=== PATIENT | female | born 1965 | race African-American/Black ===

== ENCOUNTER 2018-03-27 10:30 | Inpatient (IN) | payer SELFPAY ==
[2018-03-27] MEDS ORDERED: Nitroglycerin 0.4 MG TAB (25 Tab Bottle) ONE (11:14)
[2018-03-27 11:37] LABS: #Eosinphils 0.2 thou/uL (0.0-0.7); #Monocytes 0.4 thou/uL (0.11-0.59); #Neutrophils 3.3 thou/uL (1.40-6.50); %Basophils 0.7 % (0.0-1.0); %Eosinophils 3.7 % (0.0-10.0); %Lymphocytes 19.8 % (21.0-51.0); %Neutrophils 67.8 % (42.0-75.0); ALT (SGPT) 13 U/L (8-55); AST (SGOT) 17 U/L (5-34); Albumin 4.1 g/dL (3.5-5.0); Alkaline Phosphatase 63 U/L (40-150); Anion Gap 13 mmol/L (10-20); BUN (Urea Nitrogen) 8 mg/dL (9.8-20.1); Bilirubin, Total 0.3 mg/dL (0.2-1.2); CK (CPK) 110 U/L (29-168); Calc. Creatinine Clearance 0 mL/min (70-130); Calcium 9.1 mg/dL (7.8-10.44); Carbon Dioxide 20 mmol/L (22-29); Chloride 107 mmol/L (98-107); Estimated GFR-MDRD 72; Globulin 4.7 g/dL (2.4-3.5); Glucose 139 mg/dL (70-105); Hemoglobin 13.2 g/dL (12.0-16.0); Large Platelets MODERATE; Lipase 39 U/L (8-78); MDiff Complete? YES; Mean Corpuscular HGB CONC 33.1 g/dL (32.0-36.0); Mean Corpuscular Hemoglobin 30.1 pg (27.0-31.0); Mean Platelet Volume 13.5 fL (7.4-10.4); PLT Morphology Comment Appears Decreased; Platelet Count 94 thou/uL (130-400); Potassium 3.1 mmol/L (3.5-5.1); Protein, Total 8.8 g/dL (6.0-8.3); Red Blood Cell (RBC) Count 4.39 mill/uL (4.20-5.40); Sodium 137 mmol/L (136-145); White Blood Cell (WBC) Count 4.8 thou/uL (4.8-10.8)
[2018-03-27 11:40] LABS: CKMB 1.5 ng/mL (0-6.6); Troponin I 0.033 ng/mL (< 0.028)
[2018-03-27] MEDS ORDERED: Potassium Chloride 20 MEQ TAB ONE (11:57)
--- NOTE | 2018-03-27 12:15 | RAD ---
SINGLE VIEW CHEST: Date: 03/27/18 COMPARISON: 09/21/14. HISTORY: Low blood pressure and chest pain. FINDINGS: Single view of the chest shows a normal sized cardiomediastinal silhouette. There is no evidence of c onsolidation, mass, or pleural effusion. The bones are unremarkable. IMPRESSION: No evidence of acute cardiopulmonary disease. POS: [facility]
[2018-03-27] MEDS ORDERED: Nitroglycerin 2% Ointment 1 INCH/1 GM Packet ONE (12:33)
[2018-03-27] MEDS ORDERED: hydrALAZINE 20 MG/ML VIAL ONE (12:37)
[2018-03-27] MEDS ORDERED: niCARdipine 20MG In NaCl 20 MG/200 ML BAG ONE (13:00)
[2018-03-27 13:10] LABS: Amphetamine Not Detected (NotDetected); Barbiturates Screen Not Detected (NotDetected); Benzodiazepine Screen Not Detected (NotDetected); Cocaine Metabolite Screen Not Detected (NotDetected); Medtox Control Line Valid? VALID (VALID); Medtox Reader # READER 1; Methadone Not Detected (NotDetected); Methamphetamine Not Detected (NotDetected); Opiate Screen Not Detected (NotDetected); Oxycodone Screen Not Detected (NotDetected); Phencyclidine (PCP) Not Detected (NotDetected); THC/Cannabinoid Screen Not Detected (NotDetected); Tricyclic Screen Not Detected (NotDetected)
--- NOTE | 2018-03-27 14:11 | HP ---
[facility] call admission for [facility], referred to [facility] Hospitalist Service by [facility] for hypertensive urgency. HISTORY OF PRESENT ILLNESS: The patient noted on her telephone that her blood pressure was low. She presented to emergency room where she was found to have blood pressure of 210/133. She related at t hat time that she had stopped her medicines since her blood pressure was low. Her symptoms included some sharp chest pain and dyspnea on exertion which she said were just in the past 24 hours. The pat sadia has no local doctor upon examining her paperwork. Her prescriptions from [place], [place] were last filled here in September and she admits she has been out of her medicines for months. PAST MEDICAL HISTORY: Pertinent for longstanding hypertension and noncompliance. She had a cerebral hemorrhage, seen at this hospital in 2015 with severe uncontrolled blood pressure. ALLERGIES: No medical allergies. PAST SURGICAL HISTORY: Open reduction internal fixation of left ankle. FAMILY HISTORY: She states her mother and father are . She has no idea what cause. SOCIAL HISTORY: She is single, nonsmoker, nonalcohol drinker. Denies illicit drugs. REVIEW OF SYSTEMS: General: No headaches, dizziness, fainting, fever or chills. Eyes: No double v ision, blurred vision, flashing lights. Ear, Nose and Throat: No ear pain or drainage. No nasal bl eeding. No trouble swallowing. Cardiac: No pressure, chest pain, orthopnea or paroxysmal nocturnal dyspnea. Respiratory: No cough, wheezing or asthma, but she does have dyspnea on exertion. Gastro intestinal: No nausea, vomiting, abdominal pain, constipation or diarrhea. Genitourinary: No hemat uria, dysuria. Musculoskeletal: No pain or swelling in her arms or legs. Neurologic: Stroke 2015, no residual. Psychiatric: No anxiety, depression. Skin: No bruising, bleeding or rash. Heme/Lym ph: No tender or swollen lymph nodes in axilla, inguinal or cervical area. PHYSICAL EXAMINATION: VITAL SIGNS: Blood pressure 199/123, pulse 115, respirations 18, chest pain 4, O2 sat 100 on room ai r. GENERAL: Alert, oriented and cooperative. HEENT: Pupils equal, round, and reactive to light and extraocular movements are intact. Sclerae whi te. Tympanic membranes clear. Nose clear. Oral mucous membranes are wet. Dental hygiene is good. NECK: No jugular venous distention, adenopathy, thyromegaly. CHEST: Clear to auscultation and percussion. HEART: Had a regular rate and rhythm. First and second heart sounds are clear. There are no apprec iated murmurs or gallops. ABDOMEN: Soft, bowel sounds are normal. There is no hepatosplenomegaly, no mass, no rebound, no bru its. EXTREMITIES: Reveal no cyanosis, clubbing or edema. PULSES: Carotid, radial, femoral, dorsalis pedis pulses intact and symmetric. SKIN: Warm and dry without bruises or rash. HEME/LYMPH: No tender or swollen lymph nodes in axilla, inguinal or cervical area. NEUROLOGICAL: Cranial nerves II-XII are intact. Deep tendon reflexes symmetric. IMAGING: EKG: Regular sinus rhythm, left ventricular hypertrophy with nonspecific ST-T abnormality. Chest x-ray, no cardiomegaly, CHF or infiltrate; however, there could be some very minimal pulmonar y vascular congestion, reviewed by me. LABORATORY DATA: Sodium 137, potassium 3.1, chloride 107, CO2 of 20, BUN 8, creatinine 0.98, blood s ugar 139. Liver function tests normal. Troponin is minimally elevated at 0.033. BNP 84.7. CBC is unremarkable except for a platelet count of 94,000. ADMITTING DIAGNOSES: 1. Hypertensive urgency. 2. Medical noncompliance. 3. Atypical chest pain. 4. Dyspnea on exertion. 5. Drug screen pending. PLAN: Admit to ICU on Cardene drip. Her previous medicines which she is not taking are documented c lonidine 0.2 mg a day, lisinopril/hydrochlorothiazide 20/25 once a day, and Coreg 12.5 twice a day. These will be reinstituted once I get her in ICU with her blood pressure controlled. Serial cardiac enzymes will be done. Nitroglycerin ointment will be placed on her skin. Aspirin will be given.
[2018-03-27] MEDS ORDERED: niCARdipine 40MG In NaCl 40 MG/200 ML BAG IVPB SCH (14:24)
[2018-03-27] MEDS ORDERED: Ondansetron HCl/PF 4 MG/2 ML Vial IVP PRN (14:24)
[2018-03-27 15:06] VITALS: BMI 36.3
[2018-03-27] MEDS ORDERED: Metoprolol Tartrate 5 MG/5 ML VIAL IVP PRN (15:31)
[2018-03-27 15:33] LABS: Troponin I 0.031 ng/mL (< 0.028)
[2018-03-27] MEDS ORDERED: Potassium Chloride 20 MEQ TAB PO SCH (17:00)
--- NOTE | 2018-03-27 17:09 | PDOC.EVN ---
Event Note - Event Note Event Note: UDS negative. troponin 0.05, 0.05. will order T4, TSH. continue agressive BP control
[2018-03-27] MEDS: Ketorolac Tromethamine 30 MG/ML VIAL IVP SCH (18:51)
[2018-03-27 19:31] LABS: Troponin I 0.053 ng/mL (< 0.028)
[2018-03-27 19:45] LABS: Free Thyroxine Index 2.15 (1.4-3.1); T4 7.9 ug/dL (4.87-11.72); Thyroid Stimulating Hormone 0.6025 uIU/mL (0.35-4.94)
[2018-03-27] MEDS ORDERED: niCARdipine HCl 25 MG in Sodium Chloride 0.9% 250 ML 240 ML IVPB SCH (19:45)
[2018-03-27] MEDS: Carvedilol 6.25 MG TAB PO SCH (20:00)
[2018-03-27] MEDS ORDERED: niCARdipine HCl 50 MG in Sodium Chloride 0.9% 250 ML 240 ML IVPB SCH (20:00)
[2018-03-27] MEDS: Nitroglycerin 2% Ointment 1 INCH/1 GM Packet TOP SCH (20:01)
[2018-03-27] MEDS: Acetaminophen 325 MG TAB PO PRN (20:09)
[2018-03-27 21:37] LABS: Troponin I 0.055 ng/mL (< 0.028)
[2018-03-28] MEDS: Ketorolac Tromethamine 30 MG/ML VIAL IVP SCH ×5 (00:23→22:58)
[2018-03-28 05:29] LABS: #Eosinphils 0.1 thou/uL (0.0-0.7); #Lymphocytes 1.1 thou/uL (1.20-3.40); #Monocytes 0.8 thou/uL (0.11-0.59); %Basophils 0.1 % (0.0-1.0); %Eosinophils 0.7 % (0.0-10.0); %Lymphocytes 13.3 % (21.0-51.0); %Monocytes 10.1 % (0.0-10.0); %Neutrophils 75.8 % (42.0-75.0); Hemoglobin 12.2 g/dL (12.0-16.0); Mean Corpuscular HGB CONC 33.9 g/dL (32.0-36.0); Mean Corpuscular Volume 91.7 fL (78.0-98.0); Mean Platelet Volume 13.3 fL (7.4-10.4); Platelet Count 105 thou/uL (130-400); RBC Distribution Width 12.2 % (11.5-14.5); Red Blood Cell (RBC) Count 3.93 mill/uL (4.20-5.40); White Blood Cell (WBC) Count 7.9 thou/uL (4.8-10.8)
[2018-03-28 05:37] LABS: Anion Gap 10 mmol/L (10-20); BUN (Urea Nitrogen) 15 mg/dL (9.8-20.1); Calc. Creatinine Clearance 98 mL/min (70-130); Carbon Dioxide 21 mmol/L (22-29); Chloride 109 mmol/L (98-107); Estimated GFR-MDRD 69; Glucose 112 mg/dL (70-105); Potassium 3.8 mmol/L (3.5-5.1); Sodium 136 mmol/L (136-145)
[2018-03-28] MEDS ORDERED: hydrALAZINE 25 MG TAB PO SCH ×2 (09:00→15:00)
[2018-03-28] MEDS ORDERED: Lisinopril 20 MG TAB PO SCH (09:00)
[2018-03-28] MEDS: Aspirin 325 MG TAB PO SCH (09:09)
[2018-03-28] MEDS: Carvedilol 6.25 MG TAB PO SCH ×2 (09:10→19:41)
[2018-03-28] MEDS: Hydrochlorothiazide 25 MG TAB PO SCH (09:11)
[2018-03-28] MEDS: Nitroglycerin 2% Ointment 1 INCH/1 GM Packet TOP SCH (09:12)
--- NOTE | 2018-03-28 14:19 | PDOC.PN ---
- Subjective Encounter Start Date: 03/28/18 Encounter Start Time: 14:18 Subjective: feels much better. some headache - Objective Resuscitation Status: Resuscitation Status FULL:Full Resuscitation MAR Reviewed: Yes Vital Signs & Weight: Vital Signs (12 hours) Temp Pulse Resp BP Pulse Ox 03/28/18 12:00 98.2 F 03/28/18 09:11 145/101 H 03/28/18 09:10 105 H 145/101 H 03/28/18 08:00 97 F L 105 H 20 100 03/28/18 07:50 100 03/28/18 07:00 99.0 F 03/28/18 05:00 98.6 F Weight Weight 211 lb 10.3 oz Most Recent Monitor Data Heart Rate from ECG 115 NIBP 164/87 NIBP BP-Mean 113 Respiration from ECG 20 SpO2 100 I&O: 03/27/18 03/28/18 03/29/18 06:59 06:59 06:59 Intake Total 624 600 Output Total 750 500 Balance -126 100 Result Diagrams: 03/28/18 05:11 03/28/18 05:11 Additional Labs: Laboratory Tests 09/21/14 03/27/18 03/27/18 22:32 10:50 14:57 Troponin I 0.036 H 0.033 H 0.031 H 03/27/18 03/27/18 18:40 21:01 Troponin I 0.053 H 0.055 H Phys Exam - Physical Examination Constitutional: NAD HEENT: PERRLA, moist MMs, sclera anicteric, oral pharynx no lesions Neck: no nodes, no JVD, supple, full ROM Respiratory: no wheezing, no rales, no rhonchi, clear to auscultation bilateral Cardiovascular: RRR, no significant murmur, no rub Gastrointestinal: soft, non-tender, no distention, positive bowel sounds Musculoskeletal: no edema, pulses present Neurological: non-focal, normal sensation, moves all 4 limbs Psychiatric: normal affect, A&O x 3 Skin: no rash Dx/Plan (1) Hypertensive emergency Code(s): I10 - ESSENTIAL (PRIMARY) HYPERTENSION Status: Acute (2) Demand ischemia Code(s): I24.8 - OTHER FORMS OF ACUTE ISCHEMIC HEART DISEASE Status: Acute (3) Non compliance w medication regimen Code(s): Z91.14 - PATIENT'S OTHER NONCOMPLIANCE WITH MEDICATION REGIMEN Status : Acute (4) HTN (hypertension) Code(s): I10 - ESSENTIAL (PRIMARY) HYPERTENSION Status: Acute - Plan DVT proph w/SCDs stop cardene drip. DC Nitro paste. -: incraese hydralazine to 50 TID. -: home meds resumed. monitor. -: pt educated extensively about OP f/u closely w PCP -: transfer out of CCU.tele * . Review of Systems - Review of Systems Constitutional: negative: fever, chills, sweats, weakness, malaise, other ENT: negative: Ear Pain, Ear Discharge, Nose Pain, Nose Discharge, Nose Congestion, Mouth Pain, Mouth Swelling, Throat Pain, Throat Swelling, Other Respiratory: negative: Cough, Dry, Shortness of Breath, Hemoptysis, SOB with Excertion, Pleuritic Pain, Sputum, Wheezing Cardiovascular: negative: chest pain, palpitations, orthopnea, paroxysmal nocturnal dyspnea, edema, light headedness, other Gastrointestinal: negative: Nausea, Vomiting, Abdominal Pain, Diarrhea, Constipation, Melena, Hematochezia, Other Genitourinary: negative: Dysuria, Frequency, Incontinence, Hematuria, Retention , Other Musculoskeletal: negative: Neck Pain, Shoulder Pain, Arm Pain, Back Pain, Hand Pain, Leg Pain, Foot Pain, Other Neurological: negative: Weakness, Numbness, Incoordination, Change in Speech, Confusion, Seizures, Other - Medications/Allergies Allergies/Adverse Reactions: Allergies Allergy/AdvReac Type Severity Reaction Status Date / Time No Known Drug Allergies Allergy Verified 02/27/14 04:03 Medications: Current Medications Acetaminophen (Tylenol) 650 mg PO Q4H PRN PRN Reason: Headache/Fever or Pain Last Admin: 03/27/18 20:09 Dose: 650 mg Aspirin (Aspirin) 325 mg PO DAILY [facility] Last Admin: 03/28/18 09:09 Dose: 325 mg Carvedilol (Coreg) 12.5 mg PO BID [facility] Last Admin: 03/28/18 09:10 Dose: 12.5 mg Hydralazine HCl (Apresoline) 50 mg PO TID [facility] Hydrochlorothiazide (Hydrochlorothiazide) 25 mg PO DAILY [facility] Last Admin: 03/28/18 09:11 Dose: 25 mg Nicardipine/Sodium Chloride (Cardene Iv) 40 mg in 200 mls @ 0 mls/hr IVPB INF [facility]; Protocol Ketorolac Tromethamine (Toradol) 30 mg IVP Q6HR [facility] Stop: 04/01/18 18:01 Last Admin: 03/28/18 12:45 Dose: 30 mg Lisinopril (Zestril) 20 mg PO DAILY [facility] Last Admin: 03/28/18 09:11 Dose: 20 mg Metoprolol Tartrate (Lopressor) 5 mg IVP ONE PRN PRN Reason: tachy Stop: 03/28/18 15:32 Last Admin: 03/27/18 16:27 Dose: 5 mg Ondansetron HCl (Zofran) 4 mg IVP Q6H PRN PRN Reason: Nausea/Vomiting
[2018-03-28] MEDS ORDERED: Metoprolol Tartrate 5 MG/5 ML VIAL IVP SCH (16:45)
[2018-03-28] MEDS ORDERED: Diltiazem HCl 125 MG, Admixture Fee 1 EACH in Sodium Chloride 0.9% 100 ML IVPB SCH (18:30)
[2018-03-28] MEDS: Lisinopril 20 MG TAB PO SCH ×2 (19:41→21:46)
[2018-03-28] MEDS: cloNIDine 0.1 MG TAB PO SCH ×2 (19:41→21:45)
[2018-03-29] MEDS: Ketorolac Tromethamine 30 MG/ML VIAL IVP SCH ×3 (05:20→19:41)
[2018-03-29] MEDS: Hydrochlorothiazide 25 MG TAB PO SCH (08:54)
[2018-03-29] MEDS: cloNIDine 0.1 MG TAB PO SCH ×3 (08:55→20:24)
[2018-03-29] MEDS: Aspirin 325 MG TAB PO SCH (08:55)
[2018-03-29] MEDS: Carvedilol 6.25 MG TAB PO SCH ×3 (08:55→10:24)
[2018-03-29] MEDS: Lisinopril 20 MG TAB PO SCH ×2 (08:55→20:24)
[2018-03-29] MEDS ORDERED: Bisacodyl 5 MG TAB PO PRN (12:41)
--- NOTE | 2018-03-29 12:43 | PDOC.PN ---
- Subjective Encounter Start Date: 03/29/18 Encounter Start Time: 12:42 Subjective: feels much better today -: no more headache. no chest pain/sob -: Had to be started on cardene & then Cardiazem drip last night.now off - Objective Resuscitation Status: Resuscitation Status FULL:Full Resuscitation MAR Reviewed: Yes Vital Signs & Weight: Vital Signs (12 hours) Temp BP 03/29/18 10:24 129/80 03/29/18 08:55 161/100 H 03/29/18 03:00 98.1 F Weight Weight 211 lb 10.3 oz Most Recent Monitor Data Heart Rate from ECG 94 NIBP 129/80 NIBP BP-Mean 92 Respiration from ECG 14 SpO2 100 I&O: 03/28/18 03/29/18 03/30/18 06:59 06:59 06:59 Intake Total 624 818 120 Output Total 750 1055 Balance -126 -237 120 Result Diagrams: 03/28/18 05:11 03/28/18 05:11 Phys Exam - Physical Examination Constitutional: NAD HEENT: PERRLA, moist MMs, sclera anicteric, oral pharynx no lesions Neck: no nodes, no JVD, supple, full ROM Respiratory: no wheezing, no rales, no rhonchi, clear to auscultation bilateral Cardiovascular: RRR, no significant murmur Gastrointestinal: soft, non-tender, no distention, positive bowel sounds Musculoskeletal: no edema, pulses present Neurological: non-focal, normal sensation, moves all 4 limbs Psychiatric: normal affect, A&O x 3 Skin: no rash Dx/Plan (1) Hypertensive emergency Code(s): I10 - ESSENTIAL (PRIMARY) HYPERTENSION Status: Acute Comment: improved control (2) Demand ischemia Code(s): I24.8 - OTHER FORMS OF ACUTE ISCHEMIC HEART DISEASE Status: Acute (3) Non compliance w medication regimen Code(s): Z91.14 - PATIENT'S OTHER NONCOMPLIANCE WITH MEDICATION REGIMEN Status : Acute (4) HTN (hypertension) Code(s): I10 - ESSENTIAL (PRIMARY) HYPERTENSION Status: Acute - Plan out of bed/ambulate, DVT proph w/SCDs DC cardiazem drip. -: check ECHo given Sinus tachy.better w BB and cloinidine.cont & monitor -: Move out of CCU to tele later if BP & HR continue to be controlled -: am labs * . Review of Systems - Review of Systems Constitutional: negative: fever, chills, sweats, weakness, malaise, other ENT: negative: Ear Pain, Ear Discharge, Nose Pain, Nose Discharge, Nose Congestion, Mouth Pain, Mouth Swelling, Throat Pain, Throat Swelling, Other Respiratory: negative: Cough, Dry, Shortness of Breath, Hemoptysis, SOB with Excertion, Pleuritic Pain, Sputum, Wheezing Cardiovascular: negative: chest pain, palpitations, orthopnea, paroxysmal nocturnal dyspnea, edema, light headedness, other Gastrointestinal: negative: Nausea, Vomiting, Abdominal Pain, Diarrhea, Constipation, Melena, Hematochezia, Other Genitourinary: negative: Dysuria, Frequency, Incontinence, Hematuria, Retention , Other Skin: negative: Rash, Lesions, Bryson, Bruising, Other Neurological: negative: Weakness, Numbness, Incoordination, Change in Speech, Confusion, Seizures, Other - Medications/Allergies Allergies/Adverse Reactions: Allergies Allergy/AdvReac Type Severity Reaction Status Date / Time No Known Drug Allergies Allergy Verified 02/27/14 04:03 Medications: Current Medications Acetaminophen (Tylenol) 650 mg PO Q4H PRN PRN Reason: Headache/Fever or Pain Last Admin: 03/27/18 20:09 Dose: 650 mg Aspirin (Aspirin) 325 mg PO DAILY [facility] Last Admin: 03/29/18 08:55 Dose: 325 mg Bisacodyl (Dulcolax) 10 mg PO DAILYPRN PRN PRN Reason: Constipation Carvedilol (Coreg) 12.5 mg PO BID [facility] Clonidine (Catapres) 0.1 mg PO Q4H PRN PRN Reason: SBP>160 Clonidine (Catapres) 0.1 mg PO TID [facility] Last Admin: 03/29/18 08:55 Dose: 0.1 mg Docusate Sodium (Colace) 100 mg PO BIDPRN PRN PRN Reason: Constipation Hydrochlorothiazide (Hydrochlorothiazide) 25 mg PO DAILY [facility] Last Admin: 03/29/18 08:54 Dose: 25 mg Ketorolac Tromethamine (Toradol) 30 mg IVP Q6HR [facility] Stop: 04/01/18 18:01 Last Admin: 03/29/18 11:50 Dose: 30 mg Lisinopril (Zestril) 20 mg PO BID [facility] Last Admin: 03/29/18 08:55 Dose: 20 mg Ondansetron HCl (Zofran) 4 mg IVP Q6H PRN PRN Reason: Nausea/Vomiting Sodium Chloride (Flush - Normal Saline) 10 ml IVF Q12HR [facility] Last Admin: 03/29/18 08:56 Dose: 10 ml Sodium Chloride (Flush - Normal Saline) 10 ml IVF PRN PRN PRN Reason: Saline Flush
[2018-03-29] MEDS: Docusate 100 MG CAP PO PRN (14:10)
[2018-03-29] MEDS: Carvedilol 25 MG TAB PO SCH (20:25)
[2018-03-29] MEDS: Acetaminophen 325 MG TAB PO PRN (20:25)
[2018-03-29] MEDS ORDERED: Carvedilol 25 MG TAB PO SCH (21:00)
--- NOTE | 2018-03-29 21:49 | EKG ---
Test Reason : Blood Pressure : / mmHG Vent. Rate : 116 BPM Atrial Rate : 116 BPM P-R Int : 150 ms QRS Dur : 088 ms QT Int : 338 ms P-R-T Axes : 028 -28 080 degrees QTc Int : 469 ms Sinus tachycardia Possible Left atrial enlargement Left ventricular hypertrophy Cannot rule out Septal infarct , age undetermined Abnormal ECG Confirmed by JUANPABLO BOLANOS M.D. ([id number]), school photograph editor FRANCISCO CRAVEN ([id number]) on 03/29/2018 9:49:06 PM Referred By: Confirmed By:JUANPABLO BOLANOS M.D.
[2018-03-29] MEDS: cloNIDine 0.1 MG TAB PO PRN (22:09)
[2018-03-30] MEDS: Ketorolac Tromethamine 30 MG/ML VIAL IVP SCH ×2 (01:28→05:16)
[2018-03-30] MEDS: cloNIDine 0.1 MG TAB PO PRN (05:15)
[2018-03-30] MEDS: Acetaminophen 325 MG TAB PO PRN (05:16)
[2018-03-30 06:05] LABS: Anion Gap 11 mmol/L (10-20); BUN (Urea Nitrogen) 23 mg/dL (9.8-20.1); Calc. Creatinine Clearance 103 mL/min (70-130); Calcium 8.6 mg/dL (7.8-10.44); Carbon Dioxide 21 mmol/L (22-29); Chloride 106 mmol/L (98-107); Estimated GFR-MDRD 74; Glucose 104 mg/dL (70-105); Potassium 3.2 mmol/L (3.5-5.1); Sodium 135 mmol/L (136-145)
[2018-03-30] MEDS ORDERED: Potassium Chloride 20 MEQ TAB PO SCH (07:45)
[2018-03-30] MEDS: Aspirin 325 MG TAB PO SCH (08:33)
[2018-03-30] MEDS: Lisinopril 20 MG TAB PO SCH ×2 (08:34→20:29)
[2018-03-30] MEDS: cloNIDine 0.1 MG TAB PO SCH ×3 (08:34→20:29)
[2018-03-30] MEDS: Carvedilol 25 MG TAB PO SCH ×2 (08:34→20:30)
[2018-03-30] MEDS: Hydrochlorothiazide 25 MG TAB PO SCH (08:35)
--- NOTE | 2018-03-30 09:45 | CON ---
DATE OF CONSULTATION: 03/30/2018 This encompasses 30 minutes of time. Of that time, greater than 50% of the time was spent with the p atient and/or in the patient's unit in the hospital. REASON FOR CONSULTATION: Extended ICU stay. HISTORY OF PRESENT ILLNESS: A 52-year-old female who was admitted to this facility by Dr. Reddy on 0 03/27/2018 with hypertensive urgency. She was initially placed on Cardene and Cardizem drip. She ginette arently has baseline severe hypertension, but does not follow up regularly with the doctor and runs o ut of medications. She has now been weaned off the Cardizem and Cardene drip and is stable for trans zofia to the floor. She has no chest pain or shortness of breath at this time. PAST MEDICAL HISTORY: 1. Hypertension. 2. Hyperlipidemia. 3. Cerebral hemorrhage. PAST SURGICAL HISTORY: Open reduction internal fixation of left ankle. ALLERGIES: None. FAMILY MEDICAL HISTORY: Remarkable for no significant illnesses. SOCIAL HISTORY: Nonsmoker, does not consume alcohol, does not use illicit drugs. MEDICATIONS PRIOR TO ADMISSION: She was using clonidine, lisinopril, some type of statin medication and baby aspirin. REVIEW OF SYSTEMS: A 12-point review of systems otherwise negative. PHYSICAL EXAMINATION: VITAL SIGNS: Temperature 98.2, pulse 86, blood pressure 162/81, O2 sat 98%. GENERAL: She is awake and alert and in no distress. HEENT: Pupils react. Sclerae are anicteric. Oropharynx clear. NECK: No adenopathy, no JVD, no bruits. LUNGS: Clear without wheezing or rhonchi. CARDIAC: S1, S2 regular without audible murmur, rub or gallop. ABDOMEN: Soft, nontender. EXTREMITIES: No clubbing, cyanosis, or edema. LABORATORY DATA: Sodium 135, potassium 3.2, chloride 106, CO2 21, BUN 23, creatinine 0.9, glucose 10 4. ASSESSMENT: Uncontrolled hypertension which is now better, back on medications. The need for IV med ication has resolved. PLAN: This patient can be transferred to the floor. Her potassium will be replaced. There are no a cute pulmonary or critical care issues, so we will sign off.
--- NOTE | 2018-03-30 12:30 | PDOC.PN ---
- Subjective Encounter Start Date: 03/30/18 Encounter Start Time: 12:28 Subjective: feels much better.no CP/SOB/CHEUNG - Objective Resuscitation Status: Resuscitation Status FULL:Full Resuscitation MAR Reviewed: Yes Vital Signs & Weight: Vital Signs (12 hours) Temp Pulse Resp BP BP Pulse Ox 03/30/18 11:42 97.7 F 91 16 121/82 97 03/30/18 09:15 98.0 F 86 16 96 03/30/18 08:34 159/89 H 03/30/18 08:00 98.7 F 95 18 100 03/30/18 05:15 162/81 H 03/30/18 04:00 98.2 F Weight Weight 214 lb 8.156 oz Most Recent Monitor Data Heart Rate from ECG 95 NIBP 159/89 NIBP BP-Mean 114 Respiration from ECG 24 SpO2 99 I&O: 03/29/18 03/30/18 03/31/18 06:59 06:59 06:59 Intake Total 818 1166.4 180 Output Total 1055 720 200 Balance -237 446.4 -20 Result Diagrams: 03/28/18 05:11 03/30/18 05:25 Phys Exam - Physical Examination Constitutional: NAD HEENT: PERRLA, moist MMs, sclera anicteric, oral pharynx no lesions Neck: no nodes, no JVD, supple, full ROM Respiratory: no wheezing, no rales, no rhonchi, clear to auscultation bilateral Cardiovascular: RRR, no significant murmur, no rub Gastrointestinal: soft, non-tender, no distention, positive bowel sounds Musculoskeletal: no edema, pulses present Neurological: non-focal, normal sensation, moves all 4 limbs Psychiatric: normal affect, A&O x 3 Skin: no rash Dx/Plan (1) Hypertensive emergency Code(s): I10 - ESSENTIAL (PRIMARY) HYPERTENSION Status: Acute Comment: improved control (2) Demand ischemia Code(s): I24.8 - OTHER FORMS OF ACUTE ISCHEMIC HEART DISEASE Status: Acute (3) Non compliance w medication regimen Code(s): Z91.14 - PATIENT'S OTHER NONCOMPLIANCE WITH MEDICATION REGIMEN Status : Acute (4) HTN (hypertension) Code(s): I10 - ESSENTIAL (PRIMARY) HYPERTENSION Status: Acute - Plan out of bed/ambulate better BP control .cont PO meds as below -: Kristin REYES home in am if no if BP fluctuations -: replace and recheck potassium * . Review of Systems - Review of Systems Constitutional: negative: fever, chills, sweats, weakness, malaise, other ENT: negative: Ear Pain, Ear Discharge, Nose Pain, Nose Discharge, Nose Congestion, Mouth Pain, Mouth Swelling, Throat Pain, Throat Swelling, Other Respiratory: negative: Cough, Dry, Shortness of Breath, Hemoptysis, SOB with Excertion, Pleuritic Pain, Sputum, Wheezing Cardiovascular: negative: chest pain, palpitations, orthopnea, paroxysmal nocturnal dyspnea, edema, light headedness, other Gastrointestinal: negative: Nausea, Vomiting, Abdominal Pain, Diarrhea, Constipation, Melena, Hematochezia, Other Genitourinary: negative: Dysuria, Frequency, Incontinence, Hematuria, Retention , Other Musculoskeletal: negative: Neck Pain, Shoulder Pain, Arm Pain, Back Pain, Hand Pain, Leg Pain, Foot Pain, Other Neurological: negative: Weakness, Numbness, Incoordination, Change in Speech, Confusion, Seizures, Other - Medications/Allergies Allergies/Adverse Reactions: Allergies Allergy/AdvReac Type Severity Reaction Status Date / Time No Known Drug Allergies Allergy Verified 02/27/14 04:03 Medications: Current Medications Acetaminophen (Tylenol) 650 mg PO Q4H PRN PRN Reason: Headache/Fever or Pain Last Admin: 03/30/18 05:16 Dose: 650 mg Aspirin (Aspirin) 325 mg PO DAILY [facility] Last Admin: 03/30/18 08:33 Dose: 325 mg Bisacodyl (Dulcolax) 10 mg PO DAILYPRN PRN PRN Reason: Constipation Carvedilol (Coreg) 12.5 mg PO BID [facility] Last Admin: 03/30/18 08:34 Dose: 12.5 mg Clonidine (Catapres) 0.1 mg PO Q4H PRN PRN Reason: SBP>160 Last Admin: 03/30/18 05:15 Dose: 0.1 mg Clonidine (Catapres) 0.1 mg PO TID [facility] Last Admin: 03/30/18 08:34 Dose: 0.1 mg Docusate Sodium (Colace) 100 mg PO BIDPRN PRN PRN Reason: Constipation Last Admin: 03/29/18 14:10 Dose: 100 mg Hydrochlorothiazide (Hydrochlorothiazide) 25 mg PO DAILY [facility] Last Admin: 03/30/18 08:35 Dose: 25 mg Lisinopril (Zestril) 20 mg PO BID [facility] Last Admin: 03/30/18 08:34 Dose: 20 mg Ondansetron HCl (Zofran) 4 mg IVP Q6H PRN PRN Reason: Nausea/Vomiting Sodium Chloride (Flush - Normal Saline) 10 ml IVF Q12HR [facility] Last Admin: 03/30/18 08:37 Dose: 10 ml Sodium Chloride (Flush - Normal Saline) 10 ml IVF PRN PRN PRN Reason: Saline Flush
[2018-03-30] MEDS: Docusate 100 MG CAP PO PRN (15:02)
[2018-03-31] MEDS: Acetaminophen 325 MG TAB PO PRN (02:04)
[2018-03-31] MEDS: cloNIDine 0.1 MG TAB PO SCH ×2 (07:55→15:12)
[2018-03-31] MEDS: Aspirin 325 MG TAB PO SCH (07:55)
[2018-03-31] MEDS: Lisinopril 20 MG TAB PO SCH (07:56)
[2018-03-31] MEDS: Carvedilol 25 MG TAB PO SCH (07:56)
[2018-03-31] MEDS: Hydrochlorothiazide 25 MG TAB PO SCH (07:56)
[2018-03-31] MEDS ORDERED: Carvedilol 6.25 MG TAB PO SCH (09:45)
--- NOTE | 2018-03-31 16:51 | EKG ---
Test Reason : STAT Blood Pressure : / mmHG Vent. Rate : 126 BPM Atrial Rate : 126 BPM P-R Int : 132 ms QRS Dur : 076 ms QT Int : 328 ms P-R-T Axes : 035 -19 048 degrees QTc Int : 475 ms Poor data quality, interpretation may be adversely affected Sinus tachycardia Possible Left atrial enlargement Nonspecific ST abnormality Abnormal ECG When compared with ECG of 27-MAR-2018 10:35, Minimal criteria for Septal infarct are no longer Present ST now depressed in Inferior leads Confirmed by DR. Pawna GARDNER ([id number]) on 03/31/2018 4:51:06 PM Referred By: TREVON Confirmed By:DR. Pawan GARDNER
[2018-03-31 17:01] VITALS: BP 155/93; TEMP 98.4
[2018-03-31] MEDS ORDERED: Carvedilol 25 MG TAB PO SCH (21:00)
--- NOTE | 2018-04-01 01:37 | DIS ---
DATE OF ADMISSION: 03/27/2018 DATE OF DISCHARGE: 03/31/2018 CONDITION AT THE TIME OF DISCHARGE: Stable and improved. PRIMARY CARE PHYSICIAN: [facility]. DISCHARGE DIAGNOSES: 1. Hypertensive urgency, resolved. 2. Essential hypertension. 3. Medication noncompliance. 4. Demand ischemia. DISCHARGE MEDICATIONS: Carvedilol 25 mg p.o. b.i.d., hydrochlorothiazide 25 mg daily, lisinopril 20 mg p.o. b.i.d., clonidine 0.1 mg p.o. t.i.d. and 4 hours as needed for systolic more than 160. IN-HOUSE CONSULTATION: Critical Care Medicine, Dr. Uribe, while the patient was in the CCU. PROCEDURES DONE IN THE HOSPITAL: Transthoracic echocardiogram, which showed mild diastolic dysfuncti on, EF 60%-65%. HISTORY OF PRESENT ILLNESS: Ms. Biggs is a 52-year-old female with known history of hypertension an d medication noncompliance, who presented to the emergency room because her blood pressure was noted to be low at home. At presentation, her blood pressure was 210/133. She complained of some chest pa in and dyspnea on exertion for the last 24 hours. She has not filled any of her medications for a fe w months. She was admitted and started on Cardene drip and was admitted to CCU as well. She was sta rted also on some oral medications by the admitting physician. Please see admission history and phys ical for further details. HOSPITAL COURSE: The patient had some difficulty getting her blood pressure under control. It was g radually brought under control and eventually, she was stable on the above-mentioned medication combi nation. All the prescriptions were provided to the patient and by the time of discharge, her blood p ressure has sustained in systolic 150s to diastolic in the 90s. Aggressive lowering was avoided. She was seen and examined prior to discharge. Discharge plan was discussed with the patient. She ve rbalized understanding. She is encouraged to follow up with primary care physician and take her medi cations as prescribed and she verbalized understanding. She was seen and examined prior to discharge. PHYSICAL EXAMINATION: This morning, VITAL SIGNS: Temperature 98.4, pulse of 87, respirations 16, saturating 97% on room air, blood press ure 155/93. GENERAL: No acute distress, awake, alert, oriented x3. HEENT: Mucous membrane is moist and pink. CHEST: Clear to auscultation bilaterally. Rate and rhythm are regular.
== END 2018-03-31 18:06 | disposition home or self-care (01) | DRG 305 ==
LOC: ERS 10:30 → CCU 14:00 → T4-B 03-30 09:24
PROVIDERS: ADMIT Internal Medicine; ATTEND Internal Medicine
DX: I16.0 Hypertensive urgency (principal); I24.8 Other forms of acute ischemic heart disease; R07.89 Other chest pain; I10 Essential (primary) hypertension; R06.00 Dyspnea, unspecified; E78.5 Hyperlipidemia, unspecified; R94.31 Abnormal electrocardiogram [ECG] [EKG]; Z91.14 Patient's other noncompliance with medication regimen; Z86.69 Personal history of other diseases of the nervous system and sense organs
CPT/HCPCS: 36415; 71045; 80048; 80053; 80306; 82550; 82553; 83690; 83880; 84436; 84443; 84479; 84484; 85025; 85379; 93005; 93010; 93306; A4216; J0360; J1885; J3490; J7050

== ENCOUNTER 2022-10-30 14:29 | Outpatient (CLI) | payer BC | END 2022-10-30 14:30 | disposition home or self-care (01) | LOC: SCSRAD 14:29 | PROVIDERS: ATTEND Internal Medicine | DX: M79.641 Pain in right hand (principal) ==